=== PATIENT | female | born 1950 | race Caucasian/White ===

== ENCOUNTER 2021-10-29 16:27 | Emergency (ER) | payer MEDICARE, SELFPAY ==
[2021-10-29 16:36] VITALS: BP 159/62; PULSE 65; RESP 20; TEMP 37.3; O2SAT 99
--- NOTE | 2021-10-29 17:25 | ED.ABDPAIN ---
HPI - Abdominal Pain General Chief Complaint: Abdominal Pain Stated Complaint: stomach pain and headaches Time Seen by Provider: 10/29/21 16:55 Source: patient and RN notes reviewed Mode of arrival: ambulatory Limitations: no limitations History of Present Illness HPI narrative: Patient presents today with her son with complaints of a 3-day history of generalized abdominal pain and nausea with headache and diarrhea. Denies any urinary symptoms, back pain. States she is eating and drinking normally. History of dementia, so it is difficult to get a full history from her. Currently rates her pain 12/11. MD elicited complaint: abdominal pain Related Data Home Medications Medication Instructions Recorded Confirmed amiodarone 200 mg PO DAILY 10/29/21 10/29/21 apixaban [Eliquis] 5 mg PO BID 10/29/21 10/29/21 diltiazem HCl 60 mg PO DAILY 10/29/21 10/29/21 escitalopram oxalate 20 mg PO DAILY 10/29/21 10/29/21 metoprolol succinate 50 mg PO DAILY 10/29/21 10/29/21 pantoprazole 40 mg PO DAILY 10/29/21 10/29/21 trazodone 50 mg PO HS 10/29/21 10/29/21 Allergies Allergy/AdvReac Type Severity Reaction Status Date / Time enalaprilat Allergy Severe SEVERE LEG Unverified 09/02/18 07:31 PAIN SEBASTIEN Inhibitors Allergy Unknown Unknown Verified 10/29/21 17:20 enalapril Allergy Unknown Unknown Verified 10/29/21 17:20 Penicillins Allergy Unknown Unknown Verified 10/29/21 17:20 Sulfa (Sulfonamide Allergy Unknown Unknown Verified 10/29/21 17:20 Antibiotics) TERAZOSIN HCL AdvReac Unknown UNKNOWN Uncoded 09/02/18 07:31 Review of Systems Review of Systems: CONSTITUTIONAL: Denies body aches, fever, chills, or sweats. EYES: Denies visual changes, redness, or discharge. ENT: Denies rhinorrhea, congestion, sore throat, or otalgia. CARDIOVASCULAR: Denies chest pain, palpitations, or edema. RESPIRATORY: Denies cough or dyspnea. GASTROINTESTINAL: Denies vomiting. + Nausea, diarrhea, abdominal pain GENITOURINARY: Denies dysuria or hematuria. SKIN: Denies rash, itching, or wounds. MUSCULOSKELETAL: Denies back pain, joint pain, or myalgia. NEUROLOGIC: Denies headache, numbness, tingling, or weakness. PSYCH: Denies depression or anxiety. [facility] Family History Family History Father Patient's father is Diabetes mellitus Family history of cardiovascular disease Family history of lung cancer Cerebrovascular accident Family history of diabetes mellitus in first degree relative Family history of heart disease in male family member before age 55 Sibling Family history of thyroid disease Family history of lung cancer Family history of primary malignant neoplasm of liver Family history of heart disease in male family member before age 55 Diabetes mellitus Hypertension Family history of cardiovascular disease Cerebrovascular accident Patient's sister is in good health Malignant neoplasm of prostate Family history of diabetes mellitus in first degree relative Family history of malignant neoplasm of cervix Mother Diabetes mellitus Asthma Family history of cardiovascular disease Family history of diabetes mellitus in first degree relative Family history of malignant neoplasm of cervix Family history of malignant neoplasm of ovary Family history of heart disease in male family member before age 55 Grandparent Hypertension Family history of malignant neoplasm of breast Family history of malignant neoplasm of ovary Other Family history of arthritis Social History Social History Smoking status: Never smoker Smoking end date: 08/04/78 Alcohol intake: current Comments At time of signature, I have reviewed and agree with nursing past medical, surgical, social and family history unless otherwise noted. Please see nursing chart for further information. There is no relevant family his
== END 2021-10-29 17:35 | disposition short-term general hospital (02) ==
PROVIDERS: Emergency Provider Nurse Practitioner; PCP Family Medicine
DX: R10.84 Generalized abdominal pain (principal); R19.7 Diarrhea, unspecified
CPT/HCPCS: 81003; 87086; 99212; G0463